=== PATIENT | female | born 1955 | race Caucasian/White ===

== ENCOUNTER 2017-11-25 04:37 | Emergency (ER) | payer MEDICAID ==
[~2017-11-25] VITALS: Ht 154.9 cm; Wt 66.0 kg
[2017-11-25 04:38] VITALS: BP 177/81; PULSE 91; RESP 16; TEMP 98.4; O2SAT 98
[2017-11-25] MEDS ORDERED: SIMV20TA PO (04:58)
[2017-11-25] MEDS ORDERED: LOSA100T2 PO (04:58)
[2017-11-25] MEDS ORDERED: AMLO5TAB2 PO (04:58)
[2017-11-25] MEDS ORDERED: NABU1TAB33 PO (04:58)
[2017-11-25] MEDS ORDERED: RANI1TAB5 PO (04:58)
--- NOTE | 2017-11-25 04:58 | PD ---
HPI Chief Complaint: Abdominal Pain Time Seen by Provider: 04:51 Travel History International Travel<30 days: No Contact w/Intl Traveler<30days: No Traveled to known affect area: No History of Present Illness HPI Patient is a 62-year-old female who last night went to sleep and was awoken by a right upper quadrant pain. She describes it as a stabbing in the RUQ sharp . She has no history of gallbladder disease she does have a history of gastritis but she says this is a different distinct pain. She is complaining only of pain no nausea no vomiting no diarrhea. Patient did not take any medication to alleviate her symptoms and she has not seen another doctor for this pain PFS Past Medical History Cardiovascular Problems: Yes (HTN) High Cholesterol: Yes Diminished Hearing: No Hypertension: Yes Tetanus Vaccination: < 5 Years Influenza Vaccination: No ?: Not Past Surgical History Surgical History: No Previous Surgery Social History Alcohol Use: No Tobacco Use: No Substance Use: No Allergies-Medications (Allergen,Severity, Reaction): Coded Allergies: No Known Drug Allergies (Verified Allergy, Unknown, 11/25/17) Reported Meds & Prescriptions Reported Meds & Active Scripts Active [place] (Hydrocodone-Acetaminophen) 5 Mg-325 Mg Tab 1 Tab PO Q6H PRN Reported Nabumetone 750 Mg Tab 750 Mg PO BID Losartan-Hydrochlorothiazide 100-25 Mg Tab 1 Tab PO DAILY Simvastatin 20 Mg Tab 20 Mg PO DAILY Amlodipine (Amlodipine Besylate) 5 Mg Tab 5 Mg PO DAILY Ranitidine 75 (Ranitidine HCl) 75 Mg Tab 300 Mg PO DAILY Take 30 to 60 minutes before eating food or drinking beverages that cause heartburn. Review of Systems Except as stated in HPI: all other systems reviewed are Neg Gastrointestinal: Positive: Abdominal Pain Physical Exam Narrative GENERAL: SKIN: Warm and dry. HEAD: Atraumatic. Normocephalic. EYES: Pupils equal and round. No scleral icterus. No injection or drainage. ENT: No nasal bleeding or discharge. Mucous membranes pink and moist. NECK: Trachea midline. No JVD. CARDIOVASCULAR: Regular rate and rhythm. RESPIRATORY: No accessory muscle use. Clear to auscultation. Breath sounds equal bilaterally. GASTROINTESTINAL: Abdomen + focal right upper quadrant tenderness there is no tenderness to the epigastrium non-tender, nondistended. Hepatic and splenic margins not palpable. MUSCULOSKELETAL: Extremities without clubbing, cyanosis, or edema. No obvious deformities. NEUROLOGICAL: Awake and alert. No obvious cranial nerve deficits. Motor grossly within normal limits. Five out of 5 muscle strength in the arms and legs. Normal speech. PSYCHIATRIC: Appropriate mood and affect; insight and judgment normal. Data Data Last Documented VS Vital Signs Date Time Temp Pulse Resp B/P (MAP) Pulse Ox O2 Delivery O2 Flow Rate FiO2 11/25/17 08:39 11/25/17 04:38 98.4 91 16 98 Room Air Orders Orders Complete Blood Count With Diff (11/25/17 05:00) Comprehensive Metabolic Panel (11/25/17 05:00) Lipase (11/25/17 05:00) Urinalysis - C+S If Indicated (11/25/17 05:00) Famotidine Inj (Pepcid Inj) (11/25/17 06:00) Ondansetron Inj (Zofran Inj) (11/25/17 06:00) Us Abdomen Gallbladder (11/25/17 ) Ed Discharge Order (11/25/17 08:05) Labs Laboratory Tests Test 11/25/17 05:05 White Blood Count 11.1 TH/MM3 Red Blood Count 4.31 MIL/MM3 Hemoglobin 13.3 GM/DL Hematocrit 39.2 % Mean Corpuscular Volume 90.8 FL Mean Corpuscular Hemoglobin 30.8 PG Mean Corpuscular Hemoglobin Concent 33.9 % Red Cell Distribution Width 13.7 % Platelet Count 429 TH/MM3 Mean Platelet Volume 9.3 FL Neutrophils (%) (Auto) 62.7 % Lymphocytes (%) (Auto) 17.4 % Monocytes (%) (Auto) 4.5 % Eosinophils (%) (Auto) 14.6 % Basophils (%) (Auto) 0.8 % Neutrophils # (Auto) 7.0 TH/MM3 Lymphocytes # (Auto) 1.9 TH/MM3 Monocytes # (Auto) 0.5 TH/MM3 Eosinophils # (Auto) 1.6 TH/MM3 Basophils # (Auto) 0.1 TH/MM3 CBC Comment DIFF FINAL Differential Comment Urine Color YELLOW Urine Turbidity CLEAR Urine pH 5.5 Urine Specific [place] 1.023 Urine Protein TRACE mg/dL Urine Glucose (UA) NEG mg/dL Urine Ketones NEG mg/dL Urine Occult Blood NEG Urine Nitrite NEG Urine Bilirubin NEG Urine Urobilinogen LESS THAN 2.0 MG/DL Urine Leukocyte Esterase MOD Urine RBC 1 /hpf Urine WBC 1 /hpf Urine Squamous Epithelial Cells 1 /hpf Microscopic Urinalysis Comment CULT NOT INDICATED Blood Urea Nitrogen 18 MG/DL Creatinine 0.90 MG/DL Random Glucose 99 MG/DL Total Protein 8.0 GM/DL Albumin 3.4 GM/DL Calcium Level 8.9 MG/DL Alkaline Phosphatase 91 U/L Aspartate Amino Transf (AST/SGOT) 12 U/L Alanine Aminotransferase (ALT/SGPT) 9 U/L Total Bilirubin 0.2 MG/DL Sodium Level 138 MEQ/L Potassium Level 3.7 MEQ/L Chloride Level 106 MEQ/L Carbon Dioxide Level 24.5 MEQ/L Anion Gap 8 MEQ/L Estimat Glomerular Filtration Rate 64 ML/MIN Lipase 147 U/L [facility] Medical Decision Making Medical Screen Exam Complete: Yes Emergency Medical Condition: Yes Differential Diagnosis Cholecystitis versus gastritis versus pancreatitis versus costochondritis lower lobe pneumonia Narrative Course Patient's labs do not indicate cholecystitis. She has a clinical exam that does indicate need for an ultrasound to rule out cholecystitis Diagnosis Primary Impression: Abdominal pain Scripts Hydrocodone-Acetaminophen ([place]) 5 Mg-325 Mg Tab 1 TAB PO Q6H Y for PAIN, #15 TAB 0 Refills Prov: Sina Mares MD 11/25/17 Derrick Sung MD Nov 25, 2017 04:58
[2017-11-25 05:42] LABS: BASOPHIL # 0.1 TH/MM3 (0-0.2); BASOPHIL % 0.8 % (0.0-2.0); EOSINOPHIL # 1.6 TH/MM3 (0-0.4); EOSINOPHIL % 14.6 % (0.0-4.0); HEMATOCRIT 39.2 % (35.0-46.0); HEMOGLOBIN 13.3 GM/DL (11.6-15.3); LYMPH % 17.4 % (9.0-44.0); LYMPHOCYTE # 1.9 TH/MM3 (1.0-4.8); MEAN CELL VOLUME 90.8 FL (80.0-100.0); MEAN CORPUSCULAR HEMOGLOBIN 30.8 PG (27.0-34.0); MEAN CORPUSCULAR HGB CONC 33.9 % (32.0-36.0); MEAN PLATELET VOLUME 9.3 FL (7.0-11.0); MONO % 4.5 % (0.0-8.0); MONOCYTE # 0.5 TH/MM3 (0-0.9); NEUT % 62.7 % (16.0-70.0); PLATELET COUNT 429 TH/MM3 (150-450); RED BLOOD COUNT 4.31 MIL/MM3 (4.00-5.30); RED CELL DISTRIBUTION WIDTH 13.7 % (11.6-17.2); WHITE BLOOD COUNT 11.1 TH/MM3 (4.0-11.0)
[2017-11-25 05:49] LABS: BILIRUBIN, URINE NEG (NEG); BLOOD, URINE NEG (NEG); GLUCOSE,URINE NEG (NEG); KETONE, URINE NEG (NEG); NITRITE,URINE NEG (NEG); PH, URINE 5.5 (5.0-8.5); SQUAMOUS EPITHELIAL CELL URINE 1 /hpf (0-5); URINE COLOR YELLOW (YELLW/STRAW); URINE LEUKOCYTE ESTERASE MOD (NEG)
[2017-11-25 05:55] LABS: ALBUMIN 3.4 GM/DL (3.4-5.0); ALT (GPT) 9 U/L (10-53); AST (GOT) 12 U/L (15-37); BICARBONATE 24.5 MEQ/L (21.0-32.0); BLOOD UREA NITROGEN 18 MG/DL (7-18); CALCIUM 8.9 MG/DL (8.5-10.1); CHLORIDE 106 MEQ/L (98-107); GLOMERULAR FILTRATION RATE 64 ML/MIN (>89); GLUCOSE,RANDOM 99 MG/DL (74-106); SODIUM (NA) 138 MEQ/L (136-145)
[2017-11-25 05:57] LABS: ALKALINE PHOSPHATASE 91 U/L (45-117); TOTAL BILIRUBIN ADULT 0.2 MG/DL (0.2-1.0)
[2017-11-25] MEDS ORDERED: ONDANSETRON HCL 4 MG/2 ML VIAL IV PUSH ONE (06:00)
[2017-11-25] MEDS ORDERED: FAMOTIDINE 20 MG/2 ML VIAL IV PUSH SCH (06:00)
--- NOTE | 2017-11-25 06:59 | PD ---
Physical Exam Date Seen by Provider: Nov 25, 2017 Time Seen by Provider: 06:58 Narrative The patient is a 62-year-old female was initially evaluated by the previous physician. Please refer to the initial history, physical, diagnostic evaluation , and treatment modality plan. The patient was signed out at 7 AM with ultrasound of the gallbladder pending for right upper quadrant abdominal pain. Data Data Last Documented VS Vital Signs Date Time Temp Pulse Resp B/P (MAP) Pulse Ox O2 Delivery O2 Flow Rate FiO2 11/25/17 04:38 98.4 91 16 177/81 (113) 98 Room Air Orders Orders Complete Blood Count With Diff (11/25/17 05:00) Comprehensive Metabolic Panel (11/25/17 05:00) Lipase (11/25/17 05:00) Urinalysis - C+S If Indicated (11/25/17 05:00) Famotidine Inj (Pepcid Inj) (11/25/17 06:00) Ondansetron Inj (Zofran Inj) (11/25/17 06:00) Us Abdomen Gallbladder (11/25/17 ) Labs Laboratory Tests Test 11/25/17 05:05 White Blood Count 11.1 TH/MM3 Red Blood Count 4.31 MIL/MM3 Hemoglobin 13.3 GM/DL Hematocrit 39.2 % Mean Corpuscular Volume 90.8 FL Mean Corpuscular Hemoglobin 30.8 PG Mean Corpuscular Hemoglobin Concent 33.9 % Red Cell Distribution Width 13.7 % Platelet Count 429 TH/MM3 Mean Platelet Volume 9.3 FL Neutrophils (%) (Auto) 62.7 % Lymphocytes (%) (Auto) 17.4 % Monocytes (%) (Auto) 4.5 % Eosinophils (%) (Auto) 14.6 % Basophils (%) (Auto) 0.8 % Neutrophils # (Auto) 7.0 TH/MM3 Lymphocytes # (Auto) 1.9 TH/MM3 Monocytes # (Auto) 0.5 TH/MM3 Eosinophils # (Auto) 1.6 TH/MM3 Basophils # (Auto) 0.1 TH/MM3 CBC Comment DIFF FINAL Differential Comment Urine Color YELLOW Urine Turbidity CLEAR Urine pH 5.5 Urine Specific [place] 1.023 Urine Protein TRACE mg/dL Urine Glucose (UA) NEG mg/dL Urine Ketones NEG mg/dL Urine Occult Blood NEG Urine Nitrite NEG Urine Bilirubin NEG Urine Urobilinogen LESS THAN 2.0 MG/DL Urine Leukocyte Esterase MOD Urine RBC 1 /hpf Urine WBC 1 /hpf Urine Squamous Epithelial Cells 1 /hpf Microscopic Urinalysis Comment CULT NOT INDICATED Blood Urea Nitrogen 18 MG/DL Creatinine 0.90 MG/DL Random Glucose 99 MG/DL Total Protein 8.0 GM/DL Albumin 3.4 GM/DL Calcium Level 8.9 MG/DL Alkaline Phosphatase 91 U/L Aspartate Amino Transf (AST/SGOT) 12 U/L Alanine Aminotransferase (ALT/SGPT) 9 U/L Total Bilirubin 0.2 MG/DL Sodium Level 138 MEQ/L Potassium Level 3.7 MEQ/L Chloride Level 106 MEQ/L Carbon Dioxide Level 24.5 MEQ/L Anion Gap 8 MEQ/L Estimat Glomerular Filtration Rate 64 ML/MIN Lipase 147 U/L [facility] Medical Record Reviewed: Yes Supervised Visit with IVIS: No Interpretation(s) Laboratory Tests Test 11/25/17 05:05 White Blood Count 11.1 TH/MM3 Red Blood Count 4.31 MIL/MM3 Hemoglobin 13.3 GM/DL Hematocrit 39.2 % Mean Corpuscular Volume 90.8 FL Mean Corpuscular Hemoglobin 30.8 PG Mean Corpuscular Hemoglobin Concent 33.9 % Red Cell Distribution Width 13.7 % Platelet Count 429 TH/MM3 Mean Platelet Volume 9.3 FL Neutrophils (%) (Auto) 62.7 % Lymphocytes (%) (Auto) 17.4 % Monocytes (%) (Auto) 4.5 % Eosinophils (%) (Auto) 14.6 % Basophils (%) (Auto) 0.8 % Neutrophils # (Auto) 7.0 TH/MM3 Lymphocytes # (Auto) 1.9 TH/MM3 Monocytes # (Auto) 0.5 TH/MM3 Eosinophils # (Auto) 1.6 TH/MM3 Basophils # (Auto) 0.1 TH/MM3 CBC Comment DIFF FINAL Differential Comment Urine Color YELLOW Urine Turbidity CLEAR Urine pH 5.5 Urine Specific [place] 1.023 Urine Protein TRACE mg/dL Urine Glucose (UA) NEG mg/dL Urine Ketones NEG mg/dL Urine Occult Blood NEG Urine Nitrite NEG Urine Bilirubin NEG Urine Urobilinogen LESS THAN 2.0 MG/DL Urine Leukocyte Esterase MOD Urine RBC 1 /hpf Urine WBC 1 /hpf Urine Squamous Epithelial Cells 1 /hpf Microscopic Urinalysis Comment CULT NOT INDICATED Blood Urea Nitrogen 18 MG/DL Creatinine 0.90 MG/DL Random Glucose 99 MG/DL Total Protein 8.0 GM/DL Albumin 3.4 GM/DL Calcium Level 8.9 MG/DL Alkaline Phosphatase 91 U/L Aspartate Amino Transf (AST/SGOT) 12 U/L Alanine Aminotransferase (ALT/SGPT) 9 U/L Total Bilirubin 0.2 MG/DL Sodium Level 138 MEQ/L Potassium Level 3.7 MEQ/L Chloride Level 106 MEQ/L Carbon Dioxide Level 24.5 MEQ/L Anion Gap 8 MEQ/L Estimat Glomerular Filtration Rate 64 ML/MIN Lipase 147 U/L Last Impressions Gall Bladder Ultrasound 11/25/17 0000 Signed Impressions: Service Date/Time: Saturday, November 25, 2017 07:27 - CONCLUSION: Non- mobile stone identified within the gallbladder neck. No secondary signs to suggest acute cholecystitis.. Zainab Bartlett MD Differential Diagnosis Differential diagnosis includes allergic colic, choledocholithiasis, cholecystitis, diverticulitis, lower lobe pneumonia, peptic ulcer disease, gastritis, atypical appendicitis. Narrative Course The patient is a 62-year-old female was initially evaluated by the previous physician. Please refer to the initial history, physical, diagnostic evaluation , and treatment modality plan. The patient was signed out at 7 AM with ultrasound of the gallbladder pending. Patient's white count is minimally elevated at 11.1. LFTs and lipase are unremarkable. 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 The patient was reevaluated at 8 AM, she is now pain-free. This is the first time she's had pain in the right upper quadrant. The patient is currently staying with family in [place], [place], has been staying in [place] for the last 2 months, originally from [place]. The patient will be provided a copy of her lab results and ultrasound results at discharge. She is advised to follow-up with a general surgeon, may need elective outpatient cholecystectomy. She is advised to return for fever, intractable nausea/ vomiting, or intractable pain. She is also advised to return for fever. Diagnosis Primary Impression: Abdominal pain Qualified Codes: R10.11 - Right upper quadrant pain Additional Impression: Symptomatic cholelithiasis Patient Instructions: General Instructions Additional Instruction: Follow-up with a general surgeon. Please provide a patient a copy of her labs and ultrasound results at discharge. Medications as directed. Return if symptoms worsen or progress. Return for fever, intractable nausea/vomiting, or intractable abdominal pain. Med/Other Pt SpecificInfo: Prescription(s) given Scripts Hydrocodone-Acetaminophen ([place]) 5 Mg-325 Mg Tab 1 TAB PO Q6H Y for PAIN, #15 TAB 0 Refills Prov: Sina Mares MD 11/25/17 Disposition: 01 DISCHARGE HOME Condition: Stable Sina Mares MD Nov 25, 2017 06:59
--- NOTE | 2017-11-25 07:47 | RADRPT ---
EXAM DATE/TIME: 11/25/2017 07:27 [facility] COMPARISON: No previous studies available for comparison. INDICATIONS : Gallstones. MEDICAL HISTORY : Hypercholesterolemia. Hypertension. SURGICAL HISTORY : None. ENCOUNTER: Initial ACUITY: 1 day PAIN SCORE: 6/10 LOCATION: Right upper quadrant MEASUREMENTS: LIVER: 13.9 cm length COMMON DUCT: 3 mm RIGHT KIDNEY: 11.1 x 5.1 x 4.7 cm FINDINGS: LIVER: Normal echotexture without focal lesion or ductal dilatation. COMMON DUCT: No intraluminal mass or stone visualized. GALLBLADDER: There is a non-mobile echogenic posterior shadowing stone identified within the gallbladder neck alen uring 1.8 x 1.2 x 1.8 cm. The gallbladder wall is normal in thickness at 3 mm. No sonographic Govea' s sign was elicited. PANCREAS: The visualized portions are within normal limits. RIGHT KIDNEY: No evidence of hydronephrosis, stone, or mass. CONCLUSION: Non-mobile stone identified within the gallbladder neck. No secondary signs to suggest acute cholecys titis.. Zainab Bartlett MD on November 25, 2017 at 7:42 Board Certified Radiologist. This report was verified electronically.
[2017-11-25] MEDS ORDERED: NORC5TAB PO (08:05)
== END 2017-11-25 08:52 | disposition home or self-care (01) ==
LOC: NEPE 04:37
DX: K80.20 Calculus of gallbladder without cholecystitis without obstruction (principal); I10 Essential (primary) hypertension
CPT/HCPCS: 76705; 80053; 81001; 83690; 85025; 96374; 96375; 99284; J2405

== ENCOUNTER 2018-01-06 12:18 | Emergency (ER) | payer MEDICAID ==
[~2018-01-06] VITALS: Ht 142.2 cm; Wt 61.0 kg
[~2018-01-06 12:18] MED LIST: AMLO5TAB2 PO; LOSA100T2 PO; NABU1TAB33 PO; NORC5TAB PO; RANI1TAB5 PO; SIMV20TA PO
[2018-01-06 12:31] VITALS: BP 152/77; PULSE 83; RESP 16; TEMP 98.4; O2SAT 98
[2018-01-06] MEDS ORDERED: LOSA100T2 PO (14:41)
[2018-01-06] MEDS ORDERED: SIMV20TA PO (14:41)
--- NOTE | 2018-01-06 14:41 | PD ---
HPI Chief Complaint: Medication Refill Request Time Seen by Provider: 14:36 Travel History International Travel<30 days: No Contact w/Intl Traveler<30days: No Traveled to known affect area: No History of Present Illness HPI 62-year-old female with history of hypertension presents emergency department requesting a refill of her antihypertensive medication. Patient is here from [place]. She has been out of her medication for 3 days. She denies any acute symptoms. States she otherwise feels well. PFSH Past Medical History Hx Anticoagulant Therapy: No Cardiovascular Problems: No High Cholesterol: Yes Chemotherapy: No Cerebrovascular Accident: No Diabetes: No Diminished Hearing: No Hypertension: Yes Respiratory: No ?: Not Past Surgical History Hysterectomy: No Social History Alcohol Use: No Tobacco Use: No Substance Use: No Allergies-Medications (Allergen,Severity, Reaction): Coded Allergies: No Known Drug Allergies (Verified Allergy, Unknown, 01/06/18) Reported Meds & Prescriptions Reported Meds & Active Scripts Active Simvastatin 20 Mg Tab 20 Mg PO DAILY Losartan-Hydrochlorothiazide 100-25 Mg Tab 1 Tab PO DAILY Reported Losartan-Hydrochlorothiazide 100-25 Mg Tab 1 Tab PO DAILY Simvastatin 20 Mg Tab 20 Mg PO DAILY Review of Systems Except as stated in HPI: all other systems reviewed are Neg Physical Exam Narrative GENERAL: Well-nourished, well-developed female patient, primarily Iranian- speaking. Translating done by nurse at bedside. SKIN: Focused skin assessment warm/dry. HEAD: Normocephalic. EYES: No scleral icterus. No injection or drainage. NECK: Supple, trachea midline. No JVD or lymphadenopathy. CARDIOVASCULAR: Regular rate and rhythm without murmurs, gallops, or rubs. RESPIRATORY: Breath sounds equal bilaterally. No accessory muscle use. GASTROINTESTINAL: Abdomen soft, non-tender, nondistended. MUSCULOSKELETAL: No cyanosis, or edema. BACK: Nontender without obvious deformity. No CVA tenderness. Data Data Last Documented VS Vital Signs Date Time Temp Pulse Resp B/P (MAP) Pulse Ox O2 Delivery O2 Flow Rate FiO2 01/06/18 15:00 97.8 68 16 148/77 (100) 99 Orders Orders Ed Discharge Order (01/06/18 14:38) MDM Medical Decision Making Medical Screen Exam Complete: Yes Emergency Medical Condition: Yes Medical Record Reviewed: Yes Differential Diagnosis Med refill versus medication noncompliance versus normal exam Narrative Course 62-year-old female presents emergency department for medication refill. Patient appears well. Vital signs are stable. She will be given 30 day supply of her medication. She is encouraged to follow-up with the primary care provider and return immediately with any acute worsening symptoms. Diagnosis Primary Impression: Medication refill Additional Impression: Hypertension Qualified Codes: I10 - Essential (primary) hypertension Referrals: Primary Care Physician Patient Instructions: General Instructions, Medicine Refill (ED) Additional Instructions: Follow-up with a primary care provider Return immediately with any acute worsening symptoms Med/Other Pt SpecificInfo: Prescription(s) given Scripts Simvastatin (Simvastatin) 20 Mg Tab 20 MG PO DAILY for Cholesterol Management, #30 TAB 0 Refills Prov: Marti Brush 01/06/18 Losartan-Hydrochlorothiazide (Losartan-Hydrochlorothiazide) 100-25 Mg Tab 1 TAB PO DAILY for Blood Pressure Management, #30 TAB 0 Refills Prov: Marti Brush 01/06/18 Disposition: 01 DISCHARGE HOME Condition: Stable Marti Brush Jan 06, 2018 14:41
[2018-01-06 15:00] VITALS: BP 148/77; TEMP 97.8
== END 2018-01-06 15:04 | disposition home or self-care (01) ==
LOC: NEPD 12:18
DX: Z76.0 Encounter for issue of repeat prescription (principal); I10 Essential (primary) hypertension; E78.00 Pure hypercholesterolemia, unspecified
CPT/HCPCS: 99281